=== PATIENT | female | born 1960 | race Hispanic/Latino ===

== ENCOUNTER 2016-12-26 16:49 | Emergency (ER) | payer OTHER, MEDICARE ==
[~2016-12-26] VITALS: Ht 175.3 cm; Wt 54.5 kg
[2016-12-26 16:50] VITALS: BP 116/66; PULSE 91; RESP 16; O2SAT 98
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
[2016-12-26] MEDS: Ondansetron 2 mg/mL 2 mL Inj IVPUSH PRN ×3 (18:22→23:05)
[2016-12-26] MEDS: HYDROmorphone 0.5 mg/0.5 mL iSecure Syringe IVPUSH PRN ×4 (18:25→21:32)
[2016-12-26 18:27] LABS: BASOPHILS % (AUTO) 0.4 % (0-3); EOSINOPHILS % (AUTO) 1.6 % (0-5); MONOCYTES % (AUTO) 8.3 % (4-12); Mean Corpuscular Hemoglobin 31.1 pg (27.0-35.0); Mean Corpuscular Volume 92.5 fL (81-100); NEUTROPHILS % (AUTO) 63.2 % (40-74); Platelet Count 256 bil/L (150-400)
[2016-12-26 18:32] LABS: INR 0.95 ratio
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
[2016-12-26 18:45] LABS: TROPONIN T < 0.010 ug/L (0.0-0.011)
[2016-12-26 18:48] LABS: Magnesium 2.3 mg/dL (1.6-2.6)
[2016-12-26 18:59] LABS: Lipase 28 U/L (13-60)
[2016-12-26 19:11] LABS: APPEARANCE,URINE CLEAR (CLEAR,HAZY); COLOR,URINE YELLOW (YELLOW); OCCULT BLOOD,URINE NEGATIVE (NEGATIVE); PH,URINE 7.5 (5.0-8.0); UROBILINOGEN,URINE NORMAL (NORMAL)
[2016-12-26 19:36] VITALS: BP 131/74; PULSE 72; RESP 20; O2SAT 95
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
[2016-12-26 19:57] VITALS: BP 124/68; PULSE 68; RESP 16; O2SAT 94
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
[2016-12-26] MEDS ORDERED: TdaP Vaccine 0.5 mL Inj IM ONE (20:45)
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
[2016-12-26] MEDS ORDERED: _Ondansetron ODT 4 mg Tablet PO PRN (22:55)
[2016-12-26] MEDS ORDERED: Ketorolac 15 mg/mL Inj IVPUSH ONE (23:10)
[2016-12-26] MEDS ORDERED: ONDA4TAB12 PO (23:23)
[2016-12-26 23:36] VITALS: BP 132/77; PULSE 79; RESP 20; O2SAT 96
== END 2016-12-26 23:38 | disposition home or self-care (01) ==
LOC: SED 16:49
DX: M54.2 Cervicalgia (principal); M79.671 Pain in right foot; R10.84 Generalized abdominal pain; R51 Headache; R07.9 Chest pain, unspecified; M54.6 Pain in thoracic spine; V43.52XA Car driver injured in collision with other type car in traffic accident, initial encounter; Y93.89 Activity, other specified; Y99.8 Other external cause status; Y92.410 Unspecified street and highway as the place of occurrence of the external cause; F17.210 Nicotine dependence, cigarettes, uncomplicated; Z87.828 Personal history of other (healed) physical injury and trauma; Z90.89 Acquired absence of other organs; Z23 Encounter for immunization
CPT/HCPCS: 36415; 70450; 71010; 71260; 72125; 73630; 74177; 80053; 81001; 81025; 83690; 83735; 84484; 85025; 85610; 85730; 86850; 90471; 90715; 93005; 96374; 96375; 96376; 99285; G0480; J1170; J1885; J2060; J2405; Q9967